=== PATIENT | male | born 1950 | race Two or more races ===

== ENCOUNTER 2020-04-06 06:00 | Day surgery (SDC) | payer BC ==
[2020-03-30 15:12] LABS: CLARITY,URINE CLEAR (Clear); COLOR,URINE YELLOW (Yellow); GLUCOSE, URINE NEGATIVE (Neg); KETONES,URINE NEGATIVE (Neg); LEUKOCYTE ESTERASE ,URINE TRACE (Neg); NITRITES, URINE NEGATIVE (Neg); OCCULT BLOOD,URINE TRACE-INTACT (Neg); PROTEIN,URINE NEGATIVE (Neg); UROBILINOGEN,URINE 0.2 E.U/dL (0.2-1.0)
[2020-03-30 15:30] LABS: UA COLLECTION TYPE VOIDED
[2020-03-30 15:31] LABS: BACTERIA,URINE FEW /HPF (Neg); RBC,URINE 0-2 /HPF (0-2); SQUAMOUS EPITHELIAL CELL,UR FEW /LPF (FEW); WBC,URINE 0-4 /HPF (0-4)
[2020-03-30 15:37] LABS: BASOPHILS % (AUTO) 0.3 % (0-1); EOSINOPHILS # (AUTO) 0.1 X10'3 (0-0.9); EOSINOPHILS % (AUTO) 1.3 % (0-6); LYMPHOCYTES # (AUTO) 1.9 X10'3 (1.1-4.8); MEAN CORPUSCULAR HEMOGLOBIN 30.3 PG (27.0-31.0); MEAN CORPUSCULAR HGB CONC 33.9 g/dL (33.0-36.5); MEAN CORPUSCULAR VOLUME 89.6 FL (78-98); MEAN PLATELET VOLUME 8.2 FL (7.4-10.4); MONOCYTES # (AUTO) 0.8 X10'3 (0-0.9); MONOCYTES % (AUTO) 8.3 % (2-12); NEUTROPHILS # (AUTO) 6.8 X10'3 (1.8-7.7); NEUTROPHILS % (AUTO) 70.1 % (42-75); PRE OP HEMATOCRIT 41.7 % (42.0-52.0); PRE OP HEMOGLOBIN 14.1 g/dL (14.0-17.9); PRE OP PLATELET COUNT 224 X10'3 (140-440); RED BLOOD COUNT 4.66 X10'6 (4.70-6.10); RED CELL DISTRIBUTION WIDTH 14.2 % (11.5-14.5)
[2020-03-30 15:52] LABS: ALBUMIN 3.9 G/DL (3.4-5.0); ALKALINE PHOSPHATASE 125 IU/L (46-116); BLOOD UREA NITROGEN 17 MG/DL (7-18); BUN/CREATININE RATIO 15.5 (5.4-32.0); CALCIUM 9.1 MG/DL (8.5-10.1); CHLORIDE 103 MMOL/L (99-107); PRE OP ALT 42 U/L (30-65); PRE OP ANION GAP 10 (8-16); PRE OP AST 28 U/L (10-37); PRE OP BILIRUB, TOTAL 0.4 MG/DL (0.0-1.0); PRE OP GLUCOSE 114 MG/DL (70-104); PRE OP POTASSIUM 3.9 MMOL/L (3.4-5.1); PRE OP SODIUM 139 MMOL/L (135-145); TOTAL CARBON DIOXIDE 25.9 MMOL/L (24-32); TOTAL PROTEIN 7.8 G/DL (6.4-8.2); eGFR 66 ML/MIN
[~2020-04-06] VITALS: Ht 177.8 cm; Wt 103.4 kg
[2020-04-06] VITALS (13 sets, daily range): BP systolic 113–149; BP diastolic 65–86
[~2020-04-06 06:00] MED LIST: LOSA1TAB39 PO; ceFAZolin 2gm in dextrose, iso 50 ML IV ONE; famotidine 20mg tablet PO ONE; ringers solution, lacted 1,000 ML IV SCH
[2020-04-06] MEDS ORDERED: ceFAZolin 1000mg inj ONE (08:14)
[2020-04-06] MEDS ORDERED: BUPIVAcaine/PF 2.5 mg/ml (0.25%) 30ml vial ONE (08:14)
[2020-04-06] MEDS ORDERED: fentaNYL/PF 50MCG/1 ML 2ML syringe ONE (08:52)
[2020-04-06] MEDS ORDERED: rocuronium 10mg/ml inj IV ONE (08:52)
[2020-04-06] MEDS ORDERED: LIDOcaine 2% (20mg/ml) 5ml vial ONE (08:52)
[2020-04-06] MEDS ORDERED: propofol inj 20 ML IV ONE (08:52)
[2020-04-06] MEDS ORDERED: sevoflurane 250ml liquid IH ONE (09:11)
--- NOTE | 2020-04-06 10:32 | NUR ---
RECEIVED FROM OR VIA [facility] ACCOMPANIED BY ANESTHESIOLOGIST DR FISHER, REPORT GIVEN. PT DROWSY BUT AWAKENS EASILY, STATES PAIN IS AT A LEVEL 3 AT THIS TIME. 20 GAUGE PIV R HAND PATENT AND RUNNING LR AT 100 ML/HR. LG BANDAID DRESSING X2 ABD CDI. VSS, SKIN PINK AND WARM, ABD SOFT, SKIN PINK AND WARM, LOGAN.
[2020-04-06] MEDS ORDERED: ringers solution, lacted 1,000 ML IV SCH (10:39)
[2020-04-06] MEDS ORDERED: HYDROmorphone inj. 0.5 MG/0.5 ML DISP.SYRIN IV PRN ×2 (10:40)
[2020-04-06] MEDS ORDERED: morphine 2 MG/ML inj. syringe IV PRN (10:40)
[2020-04-06] MEDS ORDERED: ondansetron/PF 4mg/2ml inj IV PRN (10:40)
[2020-04-06] MEDS ORDERED: dexamethasone sod phosphate 4mg/ml inj. ONE (10:48)
[2020-04-06] MEDS ORDERED: acetaminophen 1,000mg/100ml IV 100 ML IV ONE (10:48)
[2020-04-06] MEDS ORDERED: ondansetron/PF 4mg/2ml inj ONE (10:48)
[2020-04-06] MEDS ORDERED: glycopyrrolate 0.2mg/ml inj ONE ×2 (10:48)
[2020-04-06] MEDS ORDERED: neostigmine methylsulfate 1 MG/ML 10ml vial ONE (10:48)
--- NOTE | 2020-04-06 12:32 | NUR ---
TOLERATING FLUIDS WELL, ABLE TO STAND, WALK AND VOID, STATES PAIN IS AT A LEVEL 3 AT THIS TIME. 20 GAUGE PIV R HAND DC/D CATH TIP INTACT. LG BANDAID DRESSING X2 ABD CDI. VSS, SKIN PINK AND WARM, ABD SOFT, SKIN PINK AND WARM, LOGAN. DISCHARGE INSTRUCTIONS GIVEN AND PT VERBALIZES UNDERSTANDING. TRANSPORTED VIA WHEELCHAIR TO SPOUSE IN PRIVATE VEHICLE TO HOME.
== END 2020-04-06 12:32 | disposition home or self-care (01) ==
LOC: PAS 06:00
PROVIDERS: ATTEND Surgery
DX: K40.90 Unilateral inguinal hernia, without obstruction or gangrene, not specified as recurrent (principal); I10 Essential (primary) hypertension; M19.90 Unspecified osteoarthritis, unspecified site; H40.9 Unspecified glaucoma; Z72.89 Other problems related to lifestyle; Z90.49 Acquired absence of other specified parts of digestive tract; Z98.890 Other specified postprocedural states; Z96.643 Presence of artificial hip joint, bilateral; Z82.49 Family history of ischemic heart disease and other diseases of the circulatory system; Z11.59 Encounter for screening for other viral diseases; Z79.899 Other long term (current) drug therapy
CPT/HCPCS: 36415; 49650; 80053; 81001; 82948; 85025; 87088; 93005; C1727; C1781; J0131; J0690; J1100; J2001; J2270; J2405; J2704; J2710; J3010; J3490; U0003; A4215; A4314; A4618; A6258; J7120

== ENCOUNTER 2021-03-15 13:31 | Emergency (ER) | payer BC ==
[~2021-03-15] VITALS: Ht 177.8 cm; Wt 101.2 kg
[~2021-03-15 13:31] MED LIST changes: -ceFAZolin 2gm in dextrose, iso 50 ML IV ONE; -famotidine 20mg tablet PO ONE; -ringers solution, lacted 1,000 ML IV SCH
[2021-03-15 14:01] VITALS: BP 144/81
== END 2021-03-15 15:15 | disposition left against medical advice (07) ==
LOC: ER 13:31
DX: M25.551 Pain in right hip (principal); M25.552 Pain in left hip; Z53.21 Procedure and treatment not carried out due to patient leaving prior to being seen by health care provider

== ENCOUNTER → 2021-03-18 | Outpatient (CLI) | payer OTHER | END | disposition home or self-care (01) | LOC: RAD 09:11 | PROVIDERS: ATTEND Emergency Medicine | DX: M43.17 Spondylolisthesis, lumbosacral region (principal); M48.061 Spinal stenosis, lumbar region without neurogenic claudication; M47.814 Spondylosis without myelopathy or radiculopathy, thoracic region | CPT/HCPCS: 72146; 72148 ==